=== PATIENT | female | born 1935 | race Caucasian/White ===

== ENCOUNTER → 2018-09-24 | Outpatient (CLI) | payer MEDICARE ==
[~2018-09-24] MED LIST: ALEN70 PO; ASPI325 PO; ASPI81EC PO; ATOR80; BUPR75; CALCA500CH PO; CHOL10002 PO; CLOP75 PO; CODACE30 PO; CYCL10; DOCU100 PO; GABA300; HYDCHL12.5 PO; HYDR1TAB94 PO; IBUP200 PO; Lasix20 MG; METO.5; METO25ER; Micro-K10 MEQ; NORT10; Ranitidine HCl150 M1; Senna8.6 MG PO; TRAM50
[2018-09-24 15:02] LABS: Alanine Aminotransfer (ALT/SGP 33 U/L (12-78); Albumin, Blood 3.5 g/dL (3.4-5.0); Albumin/Globulin Ratio 0.9 (0.8-1.8); Alk Phos 143 U/L (50-136); Anion Gap 5 mmol/L (6-16); Aspartate Aminotrans (AST/SGOT 32 U/L (12-37); Bilirubin, Total 0.5 mg/dL (0.1-1.0); Blood Urea Nitrogen 17 mg/dL (8-24); CHOL/HDL RATIO 2.2; CO2, Blood 26 mmol/L (21-32); Calcium, Blood 8.9 mg/dL (8.5-10.1); Chloride, Blood 103 mmol/L (98-108); Cholesterol 155 mg/dL (50-200); Creatinine, Blood 0.53 mg/dL (0.40-1.00); Globulin, Blood 4.1 g/dL (2.2-4.0); Glomerular Filtration Rate >60 (60-); Glucose, Blood 101 mg/dL (70-99); HDL Cholesterol 72 mg/dL (>39); LDL/HDL RATIO 0.9; Low Density Lipoprotein Chol 62 mg/dL (0-110); Potassium, Blood 3.8 mmol/L (3.5-5.5); Sodium, Blood 134 mmol/L (136-145); Total Protein, Blood 7.6 g/dL (6.4-8.2); Triglycerides 106 mg/dL (30-160); Very Low Density Lipoprot Chol 21 mg/dL (6-32)
[2018-09-24 15:08] LABS: BASOPHILS ABSOLUTE AUTO 0.03 K/mm3 (0.00-0.23); BASOPHILS PERCENT AUTO 1 % (0-2); EOSINOPHILS ABSOLUTE AUTO 0.07 K/mm3 (0.00-0.68); EOSINOPHILS PERCENT AUTO 1 % (0-6); Hematocrit 43.4 % (33.0-51.0); Hemoglobin 14.1 g/dL (11.5-16.0); IMMATURE GRAN ABSOLUTE AUTO 0.02 K/mm3 (0.00-0.10); IMMATURE GRAN PERCENT AUTO 0 % (0-1); LYMPHOCYTES ABSOLUTE AUTO 1.94 K/mm3 (0.84-5.20); LYMPHOCYTES PERCENT AUTO 30 % (21-46); MONOCYTES ABSOLUTE AUTO 0.86 K/mm3 (0.16-1.47); MONOCYTES PERCENT AUTO 14 % (4-13); Mean Corpuscular HGB 32.9 pg (26.0-34.0); Mean Corpuscular HGB Conc 32.5 g/dL (31.5-36.5); Mean Corpuscular Volume 101 fL (80-100); Mean Platelet Volume 10.9 fL (9.1-12.4); NEUTROPHILS ABSOLUTE AUTO 3.47 K/mm3 (1.96-9.15); NEUTROPHILS PERCENT AUTO 54 % (41-73); Platelet Count 245 K/mm3 (150-400); RDW Coefficient Variation 13.2 % (11.7-14.2); RDW Standard Deviation 49.2 fL (35.1-46.3); Red Blood Cell Count 4.29 M/mm3 (3.80-5.20); White Blood Cell Count 6.39 K/mm3 (4.00-11.30)
== END | disposition home or self-care (01) ==
LOC: LAB 14:07 → LAB SHORT 14:07
PROVIDERS: Physician Assistant
DX: I10 Essential (primary) hypertension (principal)
CPT/HCPCS: 80053; 80061; 85025

== ENCOUNTER 2020-03-11 08:55 | Inpatient (IN) | payer MEDICARE, OTHER ==
[~2020-03-11] VITALS: Ht 162.6 cm; Wt 41.0 kg
[~2020-03-11 08:55] MED LIST changes: +AMLO5 PO; +ATOR20 PO; +ATOR40TA PO; +CIPR500 PO; +HIGH POTENCY P1 EAC1 PO
[2020-03-11 09:27] LABS: Source, Urine Catheter
[2020-03-11 09:39] LABS: Appearance, Urine Cloudy (Clear); Bilirubin, Urine Neg (Neg); Blood, Urine 2+ (Neg); Color, Urine Yellow (P-Yellow); Glucose Qualitative, Urine Neg (Neg); Ketones, Urine 1+ (Neg); Leukocyte Esterase, Urine 2+ (Neg); Nitrite, Urine Pos (Neg); Protein, Urine 2+ (Neg); Specific Gravity, Urine 1.025 (1.003-1.022); Urobilinogen, Urine NORM (Normal)
[2020-03-11 09:48] LABS: Bacteria Many /hpf; Squamous Epithelial Cells Rare /hpf (Few)
[2020-03-11 09:51] LABS: Alanine Aminotransfer (ALT/SGP 19 U/L (12-78); Albumin, Blood 2.6 g/dL (3.4-5.0); Albumin/Globulin Ratio 0.5 (0.8-1.8); Alk Phos 293 U/L (50-136); Anion Gap 8 mmol/L (6-16); Aspartate Aminotrans (AST/SGOT 93 U/L (12-37); Bilirubin, Total 0.6 mg/dL (0.1-1.0); Blood Urea Nitrogen 22 mg/dL (8-24); Bun/Creatinine Ratio 52.5 (12.0-20.0); CO2, Blood 28 mmol/L (21-32); Calcium, Blood 11.2 mg/dL (8.5-10.1); Chloride, Blood 111 mmol/L (98-108); Creatinine, Blood 0.42 mg/dL (0.40-1.00); Globulin, Blood 5.3 g/dL (2.2-4.0); Glomerular Filtration Rate >60 (60-); Glucose, Blood 93 mg/dL (70-99); Potassium, Blood 2.7 mmol/L (3.5-5.5); Sodium, Blood 147 mmol/L (136-145); Total Protein, Blood 7.9 g/dL (6.4-8.2)
[2020-03-11 10:26] LABS: BASOPHILS ABSOLUTE AUTO 0.04 K/mm3 (0.00-0.23); BASOPHILS PERCENT AUTO 0 % (0-2); EOSINOPHILS PERCENT AUTO 0 % (0-6); Hematocrit 45.3 % (33.0-51.0); Hemoglobin 14.3 g/dL (11.5-16.0); IMMATURE GRAN PERCENT AUTO 2 % (0-1); LYMPHOCYTES ABSOLUTE AUTO 1.69 K/mm3 (0.84-5.20); LYMPHOCYTES PERCENT AUTO 12 % (21-46); MONOCYTES ABSOLUTE AUTO 0.66 K/mm3 (0.16-1.47); MONOCYTES PERCENT AUTO 5 % (4-13); Mean Corpuscular HGB 29.6 pg (26.0-34.0); Mean Corpuscular Volume 94 fL (80-100); Mean Platelet Volume 11.1 fL (9.1-12.4); NEUTROPHILS ABSOLUTE AUTO 11.06 K/mm3 (1.96-9.15); NEUTROPHILS PERCENT AUTO 81 % (41-73); Platelet Count 275 K/mm3 (150-400); RDW Coefficient Variation 14.8 % (11.7-14.2); Red Blood Cell Count 4.83 M/mm3 (3.80-5.20); White Blood Cell Count 13.65 K/mm3 (4.00-11.30)
[2020-03-11 10:31] LABS: Mean Corpuscular HGB Conc 31.6 g/dL (31.5-36.5)
[2020-03-11] MEDS ORDERED: Vitamin D2000 UNIT PO (12:28)
[2020-03-11] MEDS ORDERED: MULTI VITAMIN1 EACH PO (12:28)
[2020-03-11] MEDS ORDERED: AMLODIPINE BESYL5 MG PO (12:28)
[2020-03-11 17:21] LABS: Anion Gap 8 mmol/L (6-16); Blood Urea Nitrogen 18 mg/dL (8-24); Bun/Creatinine Ratio 47.7 (12.0-20.0); CO2, Blood 23 mmol/L (21-32); Calcium, Blood 10.3 mg/dL (8.5-10.1); Chloride, Blood 114 mmol/L (98-108); Creatinine, Blood 0.38 mg/dL (0.40-1.00); Glomerular Filtration Rate >60 (60-); Glucose, Blood 90 mg/dL (70-99); Potassium, Blood 3.4 mmol/L (3.5-5.5); Sodium, Blood 145 mmol/L (136-145)
--- NOTE | 2020-03-11 18:09 | NUR ---
SHIFT SUMMARY PT IS A NEW ED ADMISSION THIS AFTERNOON. PT RECEIVED IV AND ORAL POTASSIUM FOR LOW POTASSIUM OF 2.7. LACTATED RINGERS INFUSING WITHOUT DIFFICULTY. PT HAS A POOR APPETITE BUT DRINKING WATER AND COFFEE WITHOUT DIFFICULTY. TEMP WNL THIS EVENING AT 98.0. PT INCONTINENT OF URINE AND STOOL THIS SHIFT. THIS RN TALKED WITH DAUGHTER FOR LENGTH OF TIME. PT'S DAUGHTER WANTING PT TO GO HOME ON HOSPICE [facility] THAN [facility]. THIS RN WILL COMMUNICATE THIS WITH [facility] RN FOR THEM TO MAKE SURE DAY RN TALKS WITH TRESTLE BUILDER ABOUT THIS. NO ACUTE CHANGES AT THIS TIME. VITALS WNL. PT HAS NO COMPLAINTS. WILL CONTINUE TO MONITOR AND REPORT TO ONCOMING RN. CALL LIGHT IN REACH.
--- NOTE | 2020-03-12 04:33 | NUR ---
SHIFT SUMMARY ASSUMED CARE OF PT AT 1900. PT IS A/OX3, DENIES N/T IN EXTREMITES. HEART SOUNDS REUGLAR, TELE SHOWS SINUS @ 87 LUNG SOUNDS DIMINISHED, DENIES SOB/CP, PT IS ON 2L NC, SATURATIONS ABOVE 93%. PT HAS BEEN INCONTNENT DURING THE NIGHT, URINE DARK AND FOUL SMELLING. PT HAS GRAINY LOOSE STOOL ONCE. PT C/O PAIN IN HER HIP AND BACK, MEDICATED PER EMAR. NO ACUTE EVENTS DURING THE NIGHT. PT SLEPT T/O THE NIGHT. CALL LIGHT IN REACH, BED IN LOWEST POSTION.
[2020-03-12 05:34] LABS: BASOPHILS ABSOLUTE AUTO 0.02 K/mm3 (0.00-0.23); BASOPHILS PERCENT AUTO 0 % (0-2); EOSINOPHILS ABSOLUTE AUTO 0.02 K/mm3 (0.00-0.68); EOSINOPHILS PERCENT AUTO 0 % (0-6); Hematocrit 35.2 % (33.0-51.0); Hemoglobin 11.2 g/dL (11.5-16.0); IMMATURE GRAN ABSOLUTE AUTO 0.24 K/mm3 (0.00-0.10); IMMATURE GRAN PERCENT AUTO 2 % (0-1); LYMPHOCYTES ABSOLUTE AUTO 2.39 K/mm3 (0.84-5.20); LYMPHOCYTES PERCENT AUTO 21 % (21-46); MONOCYTES ABSOLUTE AUTO 0.41 K/mm3 (0.16-1.47); MONOCYTES PERCENT AUTO 4 % (4-13); Mean Corpuscular HGB 30.2 pg (26.0-34.0); Mean Corpuscular HGB Conc 31.8 g/dL (31.5-36.5); Mean Corpuscular Volume 95 fL (80-100); Mean Platelet Volume 10.7 fL (9.1-12.4); NEUTROPHILS ABSOLUTE AUTO 8.18 K/mm3 (1.96-9.15); NEUTROPHILS PERCENT AUTO 73 % (41-73); Platelet Count 224 K/mm3 (150-400); RDW Coefficient Variation 14.6 % (11.7-14.2); RDW Standard Deviation 50.3 fL (35.1-46.3); Red Blood Cell Count 3.71 M/mm3 (3.80-5.20); White Blood Cell Count 11.26 K/mm3 (4.00-11.30)
[2020-03-12 06:11] LABS: Alanine Aminotransfer (ALT/SGP 13 U/L (12-78); Albumin/Globulin Ratio 0.5 (0.8-1.8); Alk Phos 190 U/L (50-136); Anion Gap 9 mmol/L (6-16); Aspartate Aminotrans (AST/SGOT 78 U/L (12-37); Bilirubin, Total 0.5 mg/dL (0.1-1.0); Blood Urea Nitrogen 15 mg/dL (8-24); Bun/Creatinine Ratio 47.6 (12.0-20.0); CO2, Blood 23 mmol/L (21-32); Calcium, Blood 9.9 mg/dL (8.5-10.1); Chloride, Blood 111 mmol/L (98-108); Creatinine, Blood 0.32 mg/dL (0.40-1.00); Globulin, Blood 4.1 g/dL (2.2-4.0); Glomerular Filtration Rate >60 (60-); Glucose, Blood 60 mg/dL (70-99); Potassium, Blood 2.9 mmol/L (3.5-5.5); Sodium, Blood 143 mmol/L (136-145); Total Protein, Blood 6.1 g/dL (6.4-8.2)
--- NOTE | 2020-03-12 14:29 | NUR ---
NOTE TO CM MOSES HANSON, DAUGHTER, CALLED AND L/M FOR CM TO CONTACT REGARDING DC PLANNING. DISCUSSED POSSIBLY D/C WITH HOSPICE AND WILL REQUIRE 24/HR CAREGIVER. VALENTIN STATES SHE IS BOTH FINANCIAL AND MEDICAL DURABLE POA FOR PATIENT. HOME PHONE IS [phone] AND CELL PHONE IS [phone]. VALENTIN CAN BE REACHED AT CELL PHONE BEFORE 5PM, OTHERWISE NO CELL PHONE SCREEN EXAMINER WHEN SHE IS HOME. CALL HOME PHONE TO LEAVE MESSAGE AND VALENTIN WILL RETURN CALL. VALENTIN ALSO STATED THAT DISCHARGING TO A FACILITY WILL BE THE LAST RESORT.
--- NOTE | 2020-03-12 14:56 | NUR ---
PAIN PATIENT C/O 01/19 PAIN UNRELIEVED WITH TYLENOL. CALLED DR. ABDUL, RECEIVED TELEPHONE ORDER FOR 50 MG TRAMADOL Q6 PRN.
--- NOTE | 2020-03-12 17:45 | NUR ---
Shift Summary A/Ox3-4, pleasant and cooperative. C/O lower back pain 01/19, medicated for this per EMAR with no relief according to patient. Reposition q2h. Stage 1 pressure ulcer noted on coccyx, new mepilex applied, skin is intact. L/S were crackly in left lower base, clear in all others. LR @ [address]/OT/PT all evaluated patient today. Follows instructions well. Patient states she does not wear O2 at baseline, however, H&P states otherwise. Patient is tachypneic but has no c/o sob or dyspnea. Tele: SR 96. 88% on 1.5L, d/t this, O2 increased to 2L. Blood pressure has been slightly elevated, Dr. Cifuentes notified and aware of SBP 150-160's, no new order. Will continue to monitor.
--- NOTE | 2020-03-12 18:01 | NUR ---
Case conference with both and ST earlier today re: Pt's current status and concerns. Palliative Care to prioritize and make visit KIT.
--- NOTE | 2020-03-13 04:40 | NUR ---
SHIFT SUMMARY PT PLEASANT AND COOPERATIVE. VERY [place]. FRAIL AND DECONDITIONED. PT HAS CONSIDERABLE WEAKNESS BUT ASSISTED WELL WITH TURNING IN BED WITH TURNING AND CHANGING. PT'S LUNG SOUNDS COARSE IN BASES. OCCASSIONAL MOIST SOUNDING COUGH. PT SLEPT THROUGH MUCH OF THE NIGHT. WAKING THIS AM REPORTING 8-9/10 BACK AND HIP PAIN. MEDICATED W/ ULTRAM 50 MG. PT REMAINED ON 2 L O2 NC WITH O2 SATS IN THE LOW TO MID 90'S. PT INCONTINENT, HOWEVER DOES CALL AFTER VOIDING TO BE CHANGED. TELE SR W/ PVC'S IN THE 90'S. NO ACUTE CHANGES THIS SHIFT. MORE HYPERTENSIVE THIS AM WITH SYSTOLIC BP IN THE 160'S. OTHERWISE VITAL SIGNS STABLE. WILL CONTINUE TO MONITOR AND REPORT TO DAY RN.
[2020-03-13 06:19] LABS: Alanine Aminotransfer (ALT/SGP 17 U/L (12-78); Albumin, Blood 1.9 g/dL (3.4-5.0); Albumin/Globulin Ratio 0.5 (0.8-1.8); Alk Phos 208 U/L (50-136); Anion Gap 6 mmol/L (6-16); Aspartate Aminotrans (AST/SGOT 69 U/L (12-37); Bilirubin, Total 0.4 mg/dL (0.1-1.0); Blood Urea Nitrogen 8 mg/dL (8-24); CO2, Blood 28 mmol/L (21-32); Chloride, Blood 104 mmol/L (98-108); Creatinine, Blood 0.32 mg/dL (0.40-1.00); Globulin, Blood 4.2 g/dL (2.2-4.0); Glomerular Filtration Rate >60 (60-); Glucose, Blood 83 mg/dL (70-99); Magnesium, Blood 1.5 mg/dL (1.6-2.4); Phosphorus, Blood 2.3 mg/dL (2.5-4.9); Potassium, Blood 3.3 mmol/L (3.5-5.5); Sodium, Blood 138 mmol/L (136-145); Total Protein, Blood 6.1 g/dL (6.4-8.2)
[2020-03-13 06:21] LABS: Hematocrit 37.3 % (33.0-51.0); Mean Corpuscular HGB 29.8 pg (26.0-34.0); Mean Corpuscular HGB Conc 32.2 g/dL (31.5-36.5); Mean Corpuscular Volume 93 fL (80-100); Mean Platelet Volume 11.3 fL (9.1-12.4); NRBC ABSOLUTE 0.02 K/mm3 (0.00-0.02); NRBC Auto 0.2 /100 WBC (0.0-0.2); Platelet Count 231 K/mm3 (150-400); RDW Coefficient Variation 14.6 % (11.7-14.2); RDW Standard Deviation 49.2 fL (35.1-46.3); Red Blood Cell Count 4.03 M/mm3 (3.80-5.20)
[2020-03-13 06:57] LABS: BAND PERCENT MAN 1 % (0-8); BASOPHILS PERCENT MAN 0 % (0-2); EOSINOPHILS PERCENT MAN 0 % (0-6); LYMPHOCYTES ABSOLUTE MAN 1.37 K/mm3 (0.84-5.20); LYMPHOCYTES PERCENT MAN 14 % (21-46); MONOCYTES ABSOLUTE MAN 0.58 K/mm3 (0.16-1.47); MONOCYTES PERCENT MAN 6 % (4-13); MYELOCYTE ABSOLUTE MAN 0.39 K/mm3 (0.00-0.00); MYELOCYTE PERCENT MAN 4 % (0-0); NEUTROPHILS ABSOLUTE MAN 7.44 K/mm3 (1.96-9.15); SEG NEUTROPHILS PERCENT MAN 75 % (41-73); TOTAL CELLS COUNTED 100
--- NOTE | 2020-03-13 10:20 | NUR ---
Initial palliative care consult: Tiera is an 84 year old with a history of HTN, hyperlipidemia, aspiration pneumonia, malnutrition, PAD, GERD. She was hospitalized at [facility] in December of this year with aspiration pneumonia and was discharged to rehab at . She remained at for rehab and was discharged from to home with on 03/03/20. She was admitted with sepsis, UTI and pneumonia on 03/11/20. She appears to be quite thin. She tells this va underwriter she has never been at this low of a weight before. She states she lives alone in [place], her sister lives nearby. She has a dtr, Marion, in [place], [place] and a son in the [facility]. Tiera states that she uses a walker to get around at home. She used to drive and shop for her own groceries although she admits that this is difficult for her to do now. She reports some back pain. She states that the back pain is chronic and that at home she uses tylenol and walks around at home which improves the pain. She currently has some back pain which she attributes to being in bed. She denies N/V, SOB. She reports she is weak and hopes to get stronger. She wants to go home. She states that she doesn't want to live anywhere else. When asked if she would consider living with one of her children she said "No, people should not live with their kids." She states that she had a "career information specialist" come to her house a couple times before [facility]. She is unsure of what the career information specialist did. She states her dtr Marion is helping to make arrangements for some caregivers to come help her. She states that she and Marion make decisions together when talking about her care. The current POLST form completed in 2016 which is on the chart is full code, full treatment with senior living artificial nutrition. She states that she doesn't want to have all these things done, but hopes to go home to get stronger. Discussed the different options re: care and code status. When asked what she would want us to do if her heart stopped, she replied "Then it's goodbye." She admits she doesn't like talking about EOL care and options. Dr. Cifuentes came into Tiera's room to check in on her during my visit. Dr. Cifuentes reviewed with Pat that Pat's dtr is working to try and come up with a safe discharge plan. Will plan to speak with CM and contact pt's dtr, Marion, to determine a POC going forward.
--- NOTE | 2020-03-13 16:13 | NUR ---
Shift Summary Elevated blood pressure this AM. Dr. Cifuentes notified and Norvas ordered/given. Continues to c/o 8/10 lower back pain, reposition q2 hours and medicate per EMAR. Palliative Care RN Spring came and spoke with patient today, sister even stopped by to visit. Worked with OT/ST today, tolerated both well. Diet changed to puree by ST. Continuous LR @ 100, Tele: SR 90's. No acute changes.
--- NOTE | 2020-03-13 18:35 | NUR ---
[facility] FROM [facility] IS PROVIDING CAREGIVERS 6 DAYS PER WEEK 3 HOURS PER DAY AT HOME FOR PATIENT. CONTACT NUMBER IS [phone].
--- NOTE | 2020-03-14 05:27 | NUR ---
MARINE STEAMFITTER SUMMARY PT BEGAN SHIFT C/O BACK AND ABDOMEN PAIN, PROVIDER WAS CONTACTED TO OBTAIN PPI DUE TO THE PT'S HX OF PEPTIC ULCER AND GERD WELL THE PT'S CURRENT SYMPTOMS. PT VOIDED SEVERAL TIMES DURING THE NIGHT REQUIRING FREQUENT CHANGING.
[2020-03-14 05:46] LABS: Anion Gap 6 mmol/L (6-16); Blood Urea Nitrogen 6 mg/dL (8-24); Bun/Creatinine Ratio 19.4 (12.0-20.0); CO2, Blood 28 mmol/L (21-32); Calcium, Blood 9.5 mg/dL (8.5-10.1); Chloride, Blood 105 mmol/L (98-108); Creatinine, Blood 0.31 mg/dL (0.40-1.00); Glomerular Filtration Rate >60 (60-); Glucose, Blood 95 mg/dL (70-99); Phosphorus, Blood 2.7 mg/dL (2.5-4.9); Potassium, Blood 3.1 mmol/L (3.5-5.5); Sodium, Blood 139 mmol/L (136-145)
[2020-03-14 06:19] LABS: Hematocrit 38.1 % (33.0-51.0); Hemoglobin 12.4 g/dL (11.5-16.0); Mean Corpuscular HGB 29.7 pg (26.0-34.0); Mean Corpuscular HGB Conc 32.5 g/dL (31.5-36.5); Mean Corpuscular Volume 91 fL (80-100); Mean Platelet Volume 11.2 fL (9.1-12.4); NRBC ABSOLUTE 0.02 K/mm3 (0.00-0.02); NRBC Auto 0.2 /100 WBC (0.0-0.2); Platelet Count 246 K/mm3 (150-400); RDW Coefficient Variation 14.5 % (11.7-14.2); RDW Standard Deviation 48.4 fL (35.1-46.3); Red Blood Cell Count 4.18 M/mm3 (3.80-5.20); White Blood Cell Count 8.45 K/mm3 (4.00-11.30)
[2020-03-14 06:35] LABS: BAND PERCENT MAN 1 % (0-8); BASOPHILS PERCENT MAN 0 % (0-2); EOSINOPHILS ABSOLUTE MAN 0.08 K/mm3 (0.00-0.68); EOSINOPHILS PERCENT MAN 1 % (0-6); LYMPHOCYTES ABSOLUTE MAN 1.43 K/mm3 (0.84-5.20); LYMPHOCYTES PERCENT MAN 17 % (21-46); METAMYELOCYTE ABSOLUTE MAN 0.42 K/mm3 (0.00-0.00); METAMYELOCYTE PERCENT MAN 5 % (0-0); MONOCYTES ABSOLUTE MAN 0.92 K/mm3 (0.16-1.47); MONOCYTES PERCENT MAN 11 % (4-13); MYELOCYTE ABSOLUTE MAN 0.16 K/mm3 (0.00-0.00); MYELOCYTE PERCENT MAN 2 % (0-0); SEG NEUTROPHILS PERCENT MAN 63 % (41-73); TOTAL CELLS COUNTED 100
--- NOTE | 2020-03-14 10:22 | NUR ---
Spoke with Caremanstephany Collazo prior to Pt visit. Vale reports Pt would benefit from completing new POLST since code status has changed to DNR. Pt resting in bed upon arrival. Pt denies pain at this time. Discussed completing POLST with Pt stating she does not want to complete POLST today. Pt reports she will consider completing after family visits. Palliative Care will remain available.
--- NOTE | 2020-03-14 18:12 | NUR ---
SHIFT SUMMARY PATIENT IS PLEASANT, ALERT AND ORIENTED. DENIES ANY CONCERNS AT THIS TIME. AWAITING A SAFE DISCHARGE PLAN. DENIES ANY CHEST PAIN OR SHORTNESS OF BREATH. STILL PEEING QUITE A BIT. DENIES ANY OTHER CONCERNS. BEEN A ONE PERSON ASSIST.
--- NOTE | 2020-03-15 05:32 | NUR ---
SUMMARY PT HAD NO NEW ISSUES NOTED. PT HAS RESTED WELL THIS SHIFT. PT CURRENTLY SLEEPING IN NO DISTRESS. CALL LIGHT IN REACH AND BED ALARM ON.
[2020-03-15 05:42] LABS: Albumin, Blood 2.1 g/dL (3.4-5.0); Anion Gap 6 mmol/L (6-16); Blood Urea Nitrogen 7 mg/dL (8-24); Bun/Creatinine Ratio 22.2 (12.0-20.0); CO2, Blood 28 mmol/L (21-32); Calcium, Blood 10.9 mg/dL (8.5-10.1); Chloride, Blood 104 mmol/L (98-108); Creatinine, Blood 0.32 mg/dL (0.40-1.00); Glomerular Filtration Rate >60 (60-); Glucose, Blood 90 mg/dL (70-99); Phosphorus, Blood 3.2 mg/dL (2.5-4.9); Potassium, Blood 3.2 mmol/L (3.5-5.5); Sodium, Blood 138 mmol/L (136-145)
--- NOTE | 2020-03-15 18:13 | NUR ---
SHIFT SUMMARY PATIENT IS PLEASNT, ALERT AND ORIENTED. VERY FRAILE. SHE HAS A FRESH PUREQWICK IN PLACE. DENIES ANY PAIN OR DISCOMFORT UNLESS BEING ROLLED. SHE IS AWAITING A DISCHARGE PLAN.
--- NOTE | 2020-03-16 04:09 | NUR ---
PROJECT ENGINEERING DIRECTOR SUMMARY PT HAD NO NEW S/S THIS SHIFT. PT DID NOT HAVE A BOWEL MOVEMENT DURING THIS SHIFT AND THE PURWICK W SUCTION IS IN PLACE AND WORKING WELL. PT IS PLEASANT AND IS ABLE TO MAKE HER NEEDS KNOWN. PT SLEPT FOR MAJORITY OF THE NIGHT AND IS SLEEPING COMFORTABLY W CALL LIGHT WITHIN REACH.
[2020-03-16 05:38] LABS: Albumin, Blood 2.2 g/dL (3.4-5.0); Anion Gap 5 mmol/L (6-16); Blood Urea Nitrogen 11 mg/dL (8-24); Bun/Creatinine Ratio 30.9 (12.0-20.0); CO2, Blood 31 mmol/L (21-32); Calcium, Blood 12.3 mg/dL (8.5-10.1); Chloride, Blood 105 mmol/L (98-108); Creatinine, Blood 0.36 mg/dL (0.40-1.00); Glomerular Filtration Rate >60 (60-); Glucose, Blood 95 mg/dL (70-99); Phosphorus, Blood 3.2 mg/dL (2.5-4.9); Potassium, Blood 2.6 mmol/L (3.5-5.5); Sodium, Blood 141 mmol/L (136-145)
--- NOTE | 2020-03-16 15:54 | NUR ---
Long phone conversation with Marion this afternoon. Marion reports she has seen a steady decline in her mother's health since October of this year. Marion reports that she knows her mom is suffering and wants to keep her more comfortable. Marion states she has been in contact with Francia and Ankita Gallardo at [facility] and staff at . She is working with both [facility] and [facility] to get her mother placed at on Hospice services. Marion reports there is an outstanding bill at that she is working to resolve. Marion has also been in contact with Charmaine at [facility] and would like [facility] to work with Pat when she discharges to . Emotional support given and questions answered. Marion would like to focus on comfort for her mom, but continue to treat her with IVF and IV antibiotics for now. Marion reports that her mom loves strawberry/banana boost and fruits. Spoke with Desiree López, welding pantograph operator to incorporate some of Pat's favorite foods into her diet. Spoke wt Pat after this conventional underwriter spoke with her dtr Marion. Pat states she is miserable and c/o back pain. Spoke with Pat about transitioning to comfort care which she voiced her agreement with. Explained that Marion was working with [facility] to get her placed there. Pat wrinkled her nose when [facility] was mentioned but stated that understood she could not go home and be able to take care of herself at this time. Spoke with Dr. Mcmahan who plans to speak with Marion to confirm her wishes. Dr. Mcmahan states she will place orders for comfort care and hospice once she talks to Marion. Nursing updated. PC will continue to follow.
--- NOTE | 2020-03-16 16:22 | NUR ---
Initial spiritual care note: Mrs. Hernandez appears very frail, cachetic, and weak. She is very [place], therefore conversation difficult. She could not stay awake for visit. Per chart, she is non-yarsanism. I asked her about prayer, and she did not respond. I will remain available to pt and family.
--- NOTE | 2020-03-16 17:39 | NUR ---
SHIFT SUMMARY PT A/O X2 AND VERY FATIGUED AND PAINFUL THIS SHIFT. PT REFUSED BREAKFAST AND LUNCH. GOT 3 BAGS OF IV POTASSIUM. PT MADE COMFORT CARE AFTER DISCUSSING OPTIONS WITH THE FAMILY. PURE WICK REMOVED DUE TO IT NOT EFFECTIVELY CATCHING URINE. Q2 REPOSITIONING. PT CURRENTLY RESTING COMFORTABLY IN BED. WILL CONTINUE TO MONITOR PER COMFORT CARE ORDERS.
--- NOTE | 2020-03-16 23:45 | NUR ---
RESTING QUIETLY AT THIS TIME. TOLERATED SL PAIN MED EARLIER. CALL LIGHT IN REACH. WILL CONTINUE TO MONITOR
--- NOTE | 2020-03-17 05:46 | NUR ---
SHIFT SUMMARY HAS BEEN RESTING QUIETLY WITH EFW INTERRUPTIONS. HAS RECEIVED ANALGESIC X 2 THIS SHIFT - SEE MAR FOR DETAILS. INCONT OF URINE, LINEN CHANGED. ORAL CARE GIVEN. CALL LIGHT IN REACH. RAILS UP X 3. HOB ELEVATED FOR COMFORT.
[2020-03-17 06:15] LABS: Albumin, Blood 2.3 g/dL (3.4-5.0); Anion Gap 7 mmol/L (6-16); Blood Urea Nitrogen 16 mg/dL (8-24); Bun/Creatinine Ratio 31.7 (12.0-20.0); CO2, Blood 28 mmol/L (21-32); Chloride, Blood 112 mmol/L (98-108); Glomerular Filtration Rate >60 (60-); Glucose, Blood 79 mg/dL (70-99); Phosphorus, Blood 3.4 mg/dL (2.5-4.9); Potassium, Blood 3.3 mmol/L (3.5-5.5); Sodium, Blood 147 mmol/L (136-145)
[2020-03-17 06:19] LABS: Calcium, Blood 14.5 mg/dL (8.5-10.1)
[2020-03-17] MEDS ORDERED: ATROPINE SULFATE2 M2 SL (13:38)
[2020-03-17] MEDS ORDERED: MORP20L SL (13:40)
[2020-03-17] MEDS ORDERED: TRANSDERM-SCOP1 EAC1 TD (13:41)
--- NOTE | 2020-03-17 15:41 | NUR ---
DISCHARGE SUMMARY PT DISCHARGE ON HOSPICE TO [facility]. REPORT GIVEN TO [facility] NURSE. PT DISCHARGE W/ROXENOL. PT RESTING IN BED COMFORTABLY T/O THE DAY. Q2 TURN AND CHANGE. NS RUNNING IV AT 75/HR. IV DC'D BEFORE DISCHARGE.
--- NOTE | 2020-03-17 22:44 | NUR ---
IVF RAN OUT AND PT REFUSED ANYTHING FROM THE STAFF. EVEN ANGRY THAT WE CHANGED HER DUE TO INCONT OF URINE.
== END 2020-03-17 15:36 | disposition hospice, home (50) | DRG 871 ==
LOC: ER 08:55 → MEDS 11:55
PROVIDERS: Family Medicine; Internal Medicine; Nurse Practitioner Acute Care; Physician Assistant; ADMIT Internal Medicine
DX: A41.81 Sepsis due to Enterococcus (principal); E43 Unspecified severe protein-calorie malnutrition; J69.0 Pneumonitis due to inhalation of food and vomit; J96.01 Acute respiratory failure with hypoxia; Z68.1 Body mass index [BMI] 19.9 or less, adult; E87.0 Hyperosmolality and hypernatremia; N30.00 Acute cystitis without hematuria; Z51.5 Encounter for palliative care; R65.20 Severe sepsis without septic shock; Z20.828 Contact with and (suspected) exposure to other viral communicable diseases; E83.52 Hypercalcemia; E87.6 Hypokalemia; I10 Essential (primary) hypertension; F03.90 Unspecified dementia, unspecified severity, without behavioral disturbance, psychotic disturbance, mood disturbance, and anxiety; L89.151 Pressure ulcer of sacral region, stage 1; K21.9 Gastro-esophageal reflux disease without esophagitis; M81.0 Age-related osteoporosis without current pathological fracture; I73.9 Peripheral vascular disease, unspecified; E78.5 Hyperlipidemia, unspecified; E83.42 Hypomagnesemia; F17.210 Nicotine dependence, cigarettes, uncomplicated; Z66 Do not resuscitate; E86.0 Dehydration; Z86.14 Personal history of Methicillin resistant Staphylococcus aureus infection; R62.7 Adult failure to thrive
CPT/HCPCS: 36415; 51701; 71045; 80048; 80053; 80069; 81001; 82306; 83605; 83690; 83735; 83970; 84100; 84145; 85025; 87040; 87077; 87086; 87186; 92526; 92610; 93005; 93010; 96125-GN; 96361-59; 96365-59; 97110; 97162; 97165; 97530; 99285-25; A9270; C9113; J0692; J0696; J1650; J2060; J3475; J3480; J7030; J7040; J7060; J7120; U0003